=== PATIENT | female | born 1965 | race Caucasian/White ===

== ENCOUNTER 2017-12-17 17:32 | Emergency (ER) | payer BC ==
[2017-12-17] MEDS ORDERED: MORPHINE SULFATE 10 MG/ML VIAL IVP ONE (18:08)
[2017-12-17] MEDS ORDERED: ONDANSETRON HCL IV 4 MG/2 ML VIAL IVP ONE (18:08)
--- NOTE | 2017-12-17 18:13 | Emergency Department Record ---
History of Present Illness - General Chief Complaint: Abdominal Pain Stated Complaint: ABD PAIN/BLOATING Time Seen by Provider: 12/17/17 18:07 Source: Patient Mode of Arrival: Ambulatory Limitations: No limitations - History of Present Illness Initial Comments: 52 yo female presents to ED for evaluation of epigastric abdominal pain symptoms that began this morning. Patient reports that her pain symptoms radiate from the epigastric region resulting in diffuse pain with deep breathing. Patient reports several previous episodes that improve with ant- acid medications. Patient saw her PCP this afternoon for her symptoms, was given a GI cocktail that briefly improved her symptoms. Patient also reports taking ant-acid mediations that have not improved her symptoms. Patient denies health problems other than spherocytosis resulting in previous splenectomy. MD Complaint: Abdominal pain Onset/Timin -: Days(s) Location: Epigastric Radiation: LUQ, RUQ, LLQ, RLQ Severity: Moderate Quality: Burning Consistency: Constant Improves With: Nothing Worsens With: Nothing Associated Symptoms: Denies other symptoms - Related Data Patient : No Home Medications Medication Instructions Recorded Confirmed Last Taken Adapalene [Differin] 15 gm TP ASDIR 12/17/17 12/17/17 Unknown Calcium Carbonate/Vitamin D3 1 each PO DAILY 12/17/17 12/17/17 Unknown [Calcium 500-Vit D3 600 Caplet] Cholecalciferol (Vitamin D3) 5,000 unit PO DAILY 12/17/17 12/17/17 Unknown [Vitamin D3] Clindamycin Phosphate [Clindagel] 40 ml TP DAILY 12/17/17 12/17/17 Unknown Glucosamine/Chondro Souza A 2 each PO DAILY 12/17/17 12/17/17 Unknown [Glucosamine-Chondroitin Tab] Hyoscyamine Sulfate [Anaspaz] 0.125 mg PO ASDIR 12/17/17 12/17/17 Unknown Multivitamin [Daily Multiple 1 each PO DAILY 12/17/17 12/17/17 Unknown Vitamin] Mupirocin [Bactroban] 1 apply TP TID 12/17/17 12/17/17 Unknown Vitamin E 400 unit PO DAILY 12/17/17 12/17/17 Unknown Previous Rx's Medication Instructions Recorded Pantoprazole Sodium [Protonix] 40 mg PO DAILY #30 12/17/17 Sucralfate [Carafate] 1 g PO QID #40 [facility] 12/17/17 Allergies Allergy/AdvReac Type Severity Reaction Status Date / Time c[facility] [[facility] Allergy Mild RASH Verified 12/17/17 18:00 Travel Screening - Travel/Exposure Within Last 30 Days Have you traveled within the last 30 days?: No Review of Systems Constitutional: Denies: Chills, Fever, Malaise, Night sweats Eyes: Denies: Eye discharge, Eye pain ENT: Denies: Congestion, Ear pain, Epistaxis Respiratory: Denies: Cough, Dyspnea Cardiovascular: Denies: Chest pain, Dyspnea on exertion Endocrine: Denies: Fatigue, Heat or cold intolerance Gastrointestinal: Reports: Abdominal pain. Denies: Nausea, Vomiting Genitourinary: Denies: Incontinence, Retention Musculoskeletal: Denies: Arthralgia, Back pain Skin: Denies: Bruising, Change in color Neurological: Denies: Abnormal gait, Confusion, Headache Psychiatric: Denies: Anxiety Hematological/Lymphatic: Denies: Anemia, Blood Clots Past Medical History - SOCIAL HISTORY Smoking Status: Former smoker Alcohol Use: None Drug Use: None - RESPIRATORY Hx Respiratory Disorders: No - CARDIOVASCULAR Hx Cardio Disorders: Yes Hx Deep Vein Thrombosis: Yes (After knee surgery in 1995) - NEURO Hx Neuro Disorders: No - GI Hx GI Disorders: No - Hx Genitourinary Disorders: No - ENDOCRINE Hx Endocrine Disorders: No - MUSCULOSKELETAL Hx Musculoskeletal Disorders: No - PSYCH Hx Psych Problems: No - HEMATOLOGY/ONCOLOGY Hx Hematology/Oncology Disorders: Yes Comment:: Spirocytosis Family Medical History Any Significant Family History?: No Physical Exam - General General Appearance: Alert, Oriented x3, Cooperative, Moderate distress Limitations: No limitations - Head Head exam: Atraumatic, Normocephalic, Normal inspection Head exam detail: negative: Abrasion, Contusion, Ghotra's sign, General tenderness, Hematoma, Laceration - Eye Eye exam: Normal appearance. negative: Conjunctival injection, Periorbital swelling, Periorbital tenderness, Scleral icterus - ENT Ear exam: negative: Auricular hematoma, Auricular trauma Nasal Exam: negative: Active bleeding, Discharge, Dried blood, Foreign body Mouth exam: negative: Drooling, Laceration, Muffled voice, Tongue elevation - Neck Neck exam: Normal inspection. negative: Meningismus, Tenderness - Respiratory Respiratory exam: Normal lung sounds bilaterally. negative: Respiratory distress, Rhonchi, Stridor, Wheezes - Cardiovascular Cardiovascular Exam: Regular rate, Normal rhythm, Normal heart sounds - GI/Abdominal GI/Abdominal exam: Soft, Tenderness (Diffuse TTP on examination, no rebound, guarding are present.). negative: Rebound, Rigid - Rectal Rectal exam: Deferred - exam: Deferred - Extremities Extremities exam: Normal inspection. negative: Calf tenderness, Pedal edema, Tenderness - Back Back exam: Denies: CVA tenderness (R), CVA tenderness (L) - Neurological Neurological exam: Alert, Normal gait, Oriented X3 - Psychiatric Psychiatric exam: Normal affect, Normal mood - Skin Skin exam: Normal color. negative: Abrasion Type of lesion: negative: abrasion Course Vital Signs 12/17/17 17:55 Temperature 98.4 F Pulse Rate 57 L Respiratory 20 Rate Blood Pressure 120/71 Pulse Ox 98 - Reevaluation(s) Reevaluation #1: 12/17/17 18:54 Labs reviewed and are grossly unremarkable for an acute process. Patient was reassessed and reports improvement in her pain symptoms. CT imaging is pending at this time. Reevaluation #2: 12/17/17 19:38 CT Abdomen and Pelvis: No acute process s/p splenectomy Patient was updated on all results thus far, reports that she is resting comfortably. Will observe for another 30-60 minutes to determine disposition. Reevaluation #3: 12/17/17 20:30 Patient reassessed, reports that her pain symptoms are beginning to return. After discussion of transfer for GI consultation, patient declined stating that she would prefer to go home at this time. Will place order for GI consultation Thursday in [facility] with Dr. Emanuel and discharge home on Carafate and Protonix as directed. Patient was asked to return to ED for any recurrence of her pain symptoms and agrees with the plan of care as discussed. Medical Decision Making - Lab Data Result diagrams: 12/17/17 18:14 12/17/17 18:14 Disposition Disposition: Discharge Clinical Impression: Epigastric abdominal pain Disposition: Home, Self-Care Condition: (2) Stable Instructions: Abdominal Pain (ED) Additional Instructions: Return to ED if your symptoms worsen or if you have any concerns. Protonix and Carafate as directed. Follow-up with Dr. Emanuel in the [facility] Thursday as directed. Prescriptions: Pantoprazole Sodium [Protonix] 40 mg PO DAILY #30 tablet. Sucralfate [Carafate] 1 g PO QID #40 c Referrals: [facility] Specialty [facility] [Provider Group] Forms: Patient Portal Access Time of Disposition: 20:34 Quality - Quality Measures Quality Measures: N/A - Blood Pressure Screening Does Patient Have Any of the Following: No Blood Pressure Classification: Pre-Hypertensive BP Reading Systolic Measurement: 120 Diastolic Measurement: 71 Screening for High Blood Pressure: < Pre-Hypertensive BP, F/U Documented > [ G8950] Pre-Hypertensive Follow-up Interventions: Referral to alternative/primary care provider.
[2017-12-17] MEDS ORDERED: 0.9 % SODIUM CHLORIDE 1000ML 1,000 ML IV SCH (18:15)
[2017-12-17 18:26] LABS: URINE APPEARANCE CLEAR; URINE BILIRUBIN NEGATIVE (NEGATIVE); URINE BLOOD NEGATIVE (NEGATIVE); URINE COLOR YELLOW; URINE GLUCOSE (UA) NEGATIVE (NEGATIVE); URINE KETONE NEGATIVE (NEGATIVE); URINE LEUKOCYTE ESTERASE NEGATIVE (NEGATIVE); URINE NITRITE NEGATIVE (NEGATIVE); URINE PROTEIN NEGATIVE (NEGATIVE); URINE UROBILINOGEN 0.2 E.U./dL (0.20 - 1.00)
[2017-12-17 18:28] LABS: BASO % 1.1 % (0-6); EOS % 4.2 % (0-6); GRAN % 35.6 % (47-80); HEMATOCRIT 42.2 % (35.0-47.0); HEMOGLOBIN 14.8 gm/dl (11.6-16.0); LYMPH % 46.4 % (16-45); MEAN CELL VOLUME 85.1 fl (81-97); MEAN CORPUSCULAR HEMOGLOBIN 29.8 pg (27-33); MEAN CORPUSCULAR HGB CONC 35.1 g/dl (32-36); MEAN PLATELET VOLUME 12.1 fl (7.4-10.4); MONO % 12.7 % (0-9); PLATELET COUNT 339 K/uL (130-400); RED BLOOD COUNT 4.96 M/uL (3.80-5.40); RED CELL DISTRIBUTION WIDTH 12.4 % (11.5-14.5); WHITE BLOOD COUNT W/O DIFF 7.4 K/uL (4.2-12.2)
[2017-12-17 18:41] LABS: BLOOD UREA NITROGEN 11 mg/dL (6-20); CREATININE 0.6 mg/dL (0.5-0.9); EST GLOMERULAR FILTRATION RATE > 60 mL/min; TOTAL PROTEIN 6.9 g/dL (6.6-8.7)
[2017-12-17 18:43] LABS: GLUCOSE,RANDOM 85 mg/dL (74-109)
[2017-12-17 18:46] LABS: ALB/GLOB RATIO 1.6 (1.1-1.8); ALBUMIN 4.2 g/dL (4.0-5.0); ALKALINE PHOSPHATASE 57 U/L (35-104); ALT/SGPT 14 U/L (<33); AST/SGOT 23 U/L (10.0-35.0); LIPASE 31 U/L (13-60)
--- NOTE | 2017-12-18 10:29 | CT SCAN REPORT ---
EXAM: CT OF THE ABDOMEN AND PELVIS HISTORY: PAIN IN THE ABDOMEN. TECHNIQUE: CT of the abdomen and pelvis was performed following intravenous contrast administration. 100 ml of Omnipaque 300 contrast was used for this examination. Comparison: None. FINDINGS: The lung bases are unremarkable. The liver is unremarkable. The spleen is not identified. Has this been removed ? No history is provided regarding the spleen. The pancreas is unremarkable. There are no calcified gallstones. No adrenal gland seen. There is bilateral renal function. No renal mass or hydronephrosis. There is no aortic aneurysm. No periaortic mass or adenopathy. There are no dilated bowel loops. Nondilated fluid filled loops of small bowel are present. These measure up to 2.5 cm in diameter. There is no pelvic mass, abscess or adenopathy. No free air or free fluid identified. No lytic or blastic bone lesion. IMPRESSION: 1. NO ACUTE ABDOMINAL OR PELVIC PROCESS IDENTIFIED. 2. THE SPLEEN IS NOT IDENTIFIED, HAS THIS BEEN REMOVED? 3. SEE ABOVE FOR FULL DISCUSSION. JOB NUMBER: [id number] [facility]
== END 2017-12-17 20:44 | disposition home or self-care (01) ==
LOC: ER 17:32
DX: R10.13 Epigastric pain (principal); Z87.891 Personal history of nicotine dependence
CPT/HCPCS: 99284 ×2; 96374; 96375; 83690; 85025; 80053; 81003; 74177; Q9967; J2405; J2270; J7030

== ENCOUNTER 2019-05-07 10:32 | Emergency (ER) | payer BC ==
--- NOTE | 2019-05-07 11:28 | Emergency Department Record ---
History of Present Illness - General Chief complaint: Pain Stated complaint: RIBCAGE PAIN Time Seen by Provider: 05/07/19 11:20 Source: Patient Mode of Arrival: Ambulatory - History of Present Illness Initial comments: coughing for two weeks and severe left flank pain and lower posterior rib pain and she took motrin for pain. Onset/Timin -: Week(s) Location: Left, Other History of Same: No Severity scale (1-10): 8 Quality: Sharp, Stabbing Consistency: Constant, Getting worse Improves with: Nothing Worsens with: Exertion, Palpation, Walking Associated Symptoms: Denies other symptoms - Related Data Previous Rx's Medication Instructions Recorded Cyclobenzaprine HCl [Flexeril] 10 mg PO TID #30 tablet 05/07/19 Naproxen [Naprosyn] 500 mg PO BID #30 tablet 05/07/19 Allergies Allergy/AdvReac Type Severity Reaction Status Date / Time cefaclor [From Ceclor] Allergy Mild RASH Verified 05/07/19 10:39 Travel Screening - Travel/Exposure Within Last 30 Days Have you traveled within the last 30 days?: No - Travel/Exposure Within Last Year Have you traveled outside the [place] in the last year?: No - Additonal Travel Details Have you been exposed to anyone with a communicable illness?: No - Travel Symptoms Symptom Screening: None Review of Systems Reviewed: No additional complaints except as noted below Constitutional: Reports: As per HPI. Denies: Chills, Fever, Malaise, Night sweats, Weakness, Weight change Eyes: Reports: As per HPI. Denies: Eye discharge, Eye pain, Photophobia, Vision change ENT: Reports: As per HPI. Denies: Congestion, Dental pain, Ear pain, Epistaxis, Hearing loss, Throat pain Respiratory: Reports: As per HPI, Cough. Denies: Dyspnea, Hemoptysis, Stridor, Wheezes Cardiovascular: Reports: As per HPI, Chest pain. Denies: Arrhythmia, Dyspnea on exertion, Edema, Murmurs, Orthopnea, Palpitations, Paroxysmal nocturnal dyspnea, Rheumatic Fever, Syncope Endocrine: Reports: As per HPI. Denies: Fatigue, Heat or cold intolerance, Polydipsia, Polyuria Gastrointestinal: Reports: As per HPI. Denies: Abdominal pain, Constipation, Diarrhea, Hematemesis, Hematochezia, Melena, Nausea, Vomiting Genitourinary: Reports: As per HPI. Denies: Abnormal menses, Discharge, Dyspareunia, Dysuria, Frequency, Hematuria, Incontinence, Retention, Urgency Musculoskeletal: Reports: As per HPI. Denies: Arthralgia, Back pain, Gout, Joint swelling, Myalgia, Neck pain Skin: Reports: As per HPI. Denies: Bruising, Change in color, Change in hair/nails, Lesions, Pruritus, Rash Neurological: Reports: As per HPI. Denies: Abnormal gait, Confusion, Headache, Numbness, Paresthesias, Seizure, Tingling, Tremors, Vertigo, Weakness Psychiatric: Reports: As per HPI. Denies: Anxiety, Auditory hallucinations, Depression, Homicidal thoughts, Suicidal thoughts, Visual hallucinations Hematological/Lymphatic: Reports: As per HPI. Denies: Anemia, Blood Clots, Easy bleeding, Easy bruising, Swollen glands Past Medical History - SOCIAL HISTORY Smoking Status: Former smoker Alcohol Use: None Drug Use: None - RESPIRATORY Hx Respiratory Disorders: No - CARDIOVASCULAR Hx Cardio Disorders: Yes Hx Deep Vein Thrombosis: Yes (After knee surgery in 1995) - NEURO Hx Neuro Disorders: No - GI Hx GI Disorders: No - Hx Genitourinary Disorders: No - ENDOCRINE Hx Endocrine Disorders: No - MUSCULOSKELETAL Hx Musculoskeletal Disorders: No - PSYCH Hx Psych Problems: No - HEMATOLOGY/ONCOLOGY Hx Hematology/Oncology Disorders: Yes Comment:: Spirocytosis Family Medical History Any Significant Family History?: No Physical Exam - General General Appearance: Alert, Oriented x3, Cooperative, No acute distress - Head Head exam: Normal inspection - Eye Eye exam: Normal appearance, PERRL Pupils: Normal accommodation - ENT ENT exam: Normal exam, Mucous membranes moist, Normal external ear exam, Normal orophraynx, TM's normal bilaterally Ear exam: Normal external inspection. negative: External canal tenderness Nasal Exam: Normal inspection. negative: Discharge, Sinus tenderness Mouth exam: Normal external inspection, Tongue normal Teeth exam: Normal inspection. negative: Dental caries Throat exam: Normal inspection. negative: Tonsillar erythema, Tonsillar exudate - Neck Neck exam: Normal inspection, Full ROM. negative: Tenderness - Respiratory Respiratory exam: Normal lung sounds bilaterally, Other (pain left lower posterior rib cage T10 area). negative: Respiratory distress - Cardiovascular Cardiovascular Exam: Regular rate, Normal rhythm, Normal heart sounds - GI/Abdominal GI/Abdominal exam: Soft, Normal bowel sounds. negative: Tenderness - Rectal Rectal exam: Deferred - exam: Deferred - Extremities Extremities exam: Normal inspection, Full ROM, Normal capillary refill. negative: Tenderness - Back Back exam: Reports: Normal inspection, Full ROM. Denies: Muscle spasm, Rash noted, Tenderness - Neurological Neurological exam: Alert, Normal gait, Oriented X3, Reflexes normal - Psychiatric Psychiatric exam: Normal affect, Normal mood - Skin Skin exam: Dry, Intact, Normal color, Warm Course Vital Signs 05/07/19 10:41 Temperature 98 F Pulse Rate 66 Respiratory 16 Rate Blood Pressure 127/85 Pulse Ox 98 Disposition Clinical Impression: Thoracic myofascial strain Qualifiers: Encounter type: initial encounter Qualified Code(s): S29.019A - Strain of muscle and tendon of unspecified wall of thorax, initial encounter Disposition: Home, Self-Care Condition: (1) Good Instructions: Musculoskeletal Pain (ED) Additional Instructions: follow up with family Dr in one week' heat to painful area three times aday Prescriptions: Cyclobenzaprine HCl [Flexeril] 10 mg PO TID #30 tablet Naproxen [Naprosyn] 500 mg PO BID #30 tablet Forms: Patient Portal Access Quality - Quality Measures Quality Measures: N/A - Blood Pressure Screening Does Patient Have Any of the Following: No Blood Pressure Classification: Pre-Hypertensive BP Reading Systolic Measurement: 127 Diastolic Measurement: 85 Screening for High Blood Pressure: < Pre-Hypertensive BP, F/U Documented > [G8950] Pre-Hypertensive Follow-up Interventions: Referral to alternative/primary care provider.
--- NOTE | 2019-05-07 12:15 | RADIOLOGY REPORT ---
EXAMINATION: Two View Chest Radiographs EXAM DATE: 05/07/2019 11:46 AM TECHNIQUE: Frontal and lateral views INDICATION: cough and chest pain COMPARISON: 05/13/2015 ENCOUNTER: Not applicable FINDINGS: The heart, mediastinum, and pulmonary vasculature are normal. No lung consolidation or pleural effu sions are present. IMPRESSION: No acute radiographic findings. Dictated by: Kiah Atkinson MD on 05/07/2019 12:12 PM. .
[2019-05-07] MEDS: CYCLOBENZAPRINE 10MG TABLET PO ONE (12:53)
[2019-05-07] MEDS: NAPROXEN 250 MG TABLET PO ONE (12:53)
== END 2019-05-07 12:55 | disposition home or self-care (01) ==
LOC: ER 10:32
DX: S29.019A Strain of muscle and tendon of unspecified wall of thorax, initial encounter (principal); Z87.891 Personal history of nicotine dependence; X50.0XXA Overexertion from strenuous movement or load, initial encounter; Y93.A3 Activity, aerobic and step exercise
CPT/HCPCS: 71046; 99283